=== PATIENT | female | born 1940 | race Caucasian/White ===

== ENCOUNTER 2019-12-16 11:31 | Outpatient (CLI) | payer MEDICARE ==
--- NOTE | 2019-12-16 12:52 | RAD ---
Exam: Lumbar spine 3 views COMPARISON: 04/02/2019 HISTORY: Lumbar spondylolisthesis FINDINGS: 5 lumbar type vertebra. There is laminectomies at L3, L4, and L5. There is moderate degener ative change at L1-L2 and L2-L3. There are no acute vertebral body fracture is There are bilateral transpedicular screws at L4, L5 and S1. No perihardware lucency. There is associa adrienne disc prosthesis at L4-L5 and L5-S1. Spondylolisthesis: L4-L5: 5.6 mm of anterolisthesis, previously 4.1 mm of anterolisthesis L4-5-S1: 8 mm of anterolisthesis, previously 6.4 mm of antral listhesis IMPRESSION: 1. Interval lumbar fusion and laminectomy changes. 2. Redemonstration of slightly increased grade 1 anterolisthesis of L4 upon L5 and L5 upon S1
== END 2019-12-16 11:32 | disposition home or self-care (01) ==
LOC: MADRAD 11:31
PROVIDERS: ATTEND Neurological Surgery
DX: M43.16 Spondylolisthesis, lumbar region (principal); M43.17 Spondylolisthesis, lumbosacral region; Z98.1 Arthrodesis status
CPT/HCPCS: 72100